=== PATIENT | female | born 1995 | race Caucasian/White ===

== ENCOUNTER 2018-10-19 22:41 | Emergency (ER) | payer SELFPAY ==
[2018-10-19] MEDS: LORAZEPAM 2 MG INJ IM ×2 (23:06→23:30)
[2018-10-19 23:53] LABS: BARBITURATES Negative (NEGATIVE); BENZODIAZEPINES Negative (NEGATIVE); CANNABINOIDS Positive (NEGATIVE)
[2018-10-19 23:54] LABS: OPIATES Positive (NEGATIVE)
[2018-10-20 00:03] LABS: AMPHETAMINE/METHAMPHETAMINE POSITIVE (NEGATIVE)
[2018-10-20 00:04] LABS: COCAINE Negative (NEGATIVE)
== END 2018-10-20 13:40 | disposition home or self-care (01) ==
LOC: E/R 22:41
DX: F15.10 Other stimulant abuse, uncomplicated (principal); F17.210 Nicotine dependence, cigarettes, uncomplicated; F11.10 Opioid abuse, uncomplicated; R40.2222 Coma scale, best verbal response, incomprehensible words, at arrival to emergency department; R40.2352 Coma scale, best motor response, localizes pain, at arrival to emergency department; R40.2142 Coma scale, eyes open, spontaneous, at arrival to emergency department
CPT/HCPCS: 80307; 96372; 99284-25